=== PATIENT | female | born 1990 | race Caucasian/White ===

== ENCOUNTER 2020-07-15 01:00 | Emergency (ER) | payer OTHER ==
[~2020-07-15 01:00] MED LIST: BENADRYL 25MG C25 MG PO; BENTYL 20MG TAB20 MG PO; CEFUROXIME500 MG PO; FERROUS SULFAT325 M2 PO; LIDOCAINE PAIN1 EACH TP; LODINE CAP 300300 MG PO; MACROBID 100 M100 MG PO; NAPROXEN 250 M250 MG PO; SUBUTEX 8 MG TAB8 MG SL; ZOFRAN ODT 4 MG4 MG PO; ZOFRAN4 MG SL
[2020-07-15] MEDS ORDERED: CLEOCIN HCL300 MG PO (03:28)
[2020-07-15] MEDS ORDERED: TORADOL 10 MG T10 MG PO (03:28)
== END 2020-07-15 04:00 | disposition home or self-care (01) ==
LOC: ER1 01:00
DX: K08.89 Other specified disorders of teeth and supporting structures (principal); F17.220 Nicotine dependence, chewing tobacco, uncomplicated
CPT/HCPCS: 64400; 99282

== ENCOUNTER 2022-01-11 03:30 | Emergency (ER) | payer OTHER ==
[~2022-01-11 03:30] MED LIST changes: +CLEOCIN HCL300 MG PO; +TORADOL 10 MG T10 MG PO
[2022-01-11] MEDS ORDERED: HYDROCODON-ACE1 EAC4 PO (04:46)
== END 2022-01-11 05:05 | disposition home or self-care (01) ==
LOC: ER1 03:30
DX: G62.9 Polyneuropathy, unspecified (principal); R00.0 Tachycardia, unspecified
CPT/HCPCS: 73080; 99283

== ENCOUNTER 2022-03-02 18:09 | Emergency (ER) | payer OTHER ==
[~2022-03-02 18:09] MED LIST changes: +HYDROCODON-ACE1 EAC4 PO
== END 2022-03-03 00:39 | disposition home or self-care (01) ==
LOC: ER1 18:09
DX: G43.909 Migraine, unspecified, not intractable, without status migrainosus (principal); Z88.0 Allergy status to penicillin
CPT/HCPCS: 96374; 96375; 99283; J0780; J1200; J1885

== ENCOUNTER 2022-03-11 19:21 | Emergency (ER) | payer OTHER ==
[2022-03-11 20:00] LABS: HEMOGLOBIN 13.7 gm/dl (12.3-15.3); RED BLOOD COUNT 4.55 M/UL (4.00-5.10); WHITE BLOOD COUNT 8.8 K/UL (4.5-11.0)
[2022-03-11 20:16] LABS: BUN/CREATININE RATIO 18 (0-10)
[2022-03-11] MEDS ORDERED: BACITRAYCIN PLU28 GM TP (22:22)
[2022-03-11] MEDS ORDERED: DELSYM30 MG/5 ML PO (23:00)
[2022-03-11] MEDS ORDERED: DICLEGIS DR 101 EACH PO (23:00)
== END 2022-03-11 23:05 | disposition home or self-care (01) ==
LOC: ER1 19:21
PROVIDERS: Physician Assistant
DX: O98.511 Other viral diseases complicating pregnancy, first trimester (principal); U07.1 COVID-19; Z3A.08 8 weeks gestation of pregnancy
CPT/HCPCS: 71045; 80053; 81001; 84703; 85025; 96374; 99285; J2765